=== PATIENT | male | born 1995 | race Two or more races ===

== ENCOUNTER 2020-01-13 09:57 | Emergency (ER) | payer OTHER ==
[~2020-01-13] VITALS: Ht 188 cm; Wt 103.3 kg
--- NOTE | 2020-01-13 10:13 | NUR ---
DR PATEL BS FOR EXAM. PT STATES PAIN STARTED IN RUQ X 3-4 HRS. STARTED ABOUT 3 WEEKS AGO. PAIN MOVES TO DIFFERENT ABD LOCATIONS. THIS AM LUQ; THEN "MOVED TO RT SIDE OF BELLY BUTTON"; CURRENTLY PAIN FREE. DENIES N/V, HX OF KIDNEY STONE. REPORTS SOFT BM'S IN MORNINGS. LAST BM: TODAY. Addendum: 01/13/20 at 1019 by KALYAN "I'VE BEEN BELCHING A LOT" "FEELS BETTER AFTER BURPING"
--- NOTE | 2020-01-13 10:25 | NUR ---
VOIDED SPECIMEN WAS PROVIDED: CLEAR YELLOW. LAB NOW BS.
[2020-01-13 10:40] LABS: BASOPHILS # (AUTO) 0.02 x10^3/uL (0-0.1); BASOPHILS % (AUTO) 0 % (0-1); EOSINOPHILS # (AUTO) 0.02 x10^3/uL (0-0.4); EOSINOPHILS % (AUTO) 0 % (1-7); LYMPHOCYTES # (AUTO) 1.01 x10^3/uL (1-3.4); LYMPHOCYTES % (AUTO) 18 % (22-44); MD NO; MEAN CORPUSCULAR HEMOGLOBIN 31.6 pg (27.5-34.5); MEAN CORPUSCULAR HGB CONC 33.5 g/dL (33.2-36.2); MEAN CORPUSCULAR VOLUME 94.2 fL (81-97); MEAN PLATELET VOLUME 9.3 fL (7.4-10.4); MONOCYTES # (AUTO) 0.39 x10^3/uL (0.2-0.8); MONOCYTES % (AUTO) 7 % (2-9); NEUTROPHILS # (AUTO) 4.16 x10^3/uL (1.8-6.8); NEUTROPHILS % (AUTO) 74 % (42-75); PLATELET COUNT 197 x10^3/uL (130-400); RED BLOOD COUNT 5.27 x10^6/uL (4.38-5.82); RED CELL DISTRIBUTION WIDTH 13.3 % (9.4-14.8)
[2020-01-13 10:49] LABS: ALANINE AMINOTRANSFERASE 25 U/L (12-78); ANION GAP 7 mmol/L (5-15); CALCIUM 9.1 mg/dL (8.5-10.1); CHLORIDE 109 mmol/L (98-107); CREATININE 1.07 mg/dL (0.7-1.3)
[2020-01-13 10:51] LABS: ALKALINE PHOSPHATASE 66 U/L (45-117); BILIRUBIN,TOTAL 0.5 mg/dL (0.2-1.0); TOTAL PROTEIN 8.1 g/dL (6.4-8.2)
[2020-01-13 11:47] LABS: MICROSCOPIC NOT IND
[2020-01-13 11:48] LABS: CULTURE INDICATED? NO
[2020-01-13 12:26] VITALS: BP 107/66
== END 2020-01-13 12:28 | disposition home or self-care (01) ==
LOC: ED 10:41
DX: R19.7 Diarrhea, unspecified (principal); R10.13 Epigastric pain
CPT/HCPCS: 36415; 74176; 80053; 81003; 83690; 85025; 99284

== ENCOUNTER 2020-04-12 20:04 | Emergency (ER) | payer OTHER ==
[~2020-04-12] VITALS: Ht 188 cm; Wt 97.6 kg
[2020-04-12 20:08] VITALS: BP 130/84
[2020-04-12] MEDS ORDERED: CEFDINIR 300 MG CAPSULE ONE (20:42)
[2020-04-12] MEDS ORDERED: MECLIZINE CHEWABLE 25 MG TAB ONE (20:46)
[2020-04-12] MEDS ORDERED: CEFDINIR 300 MG CAPSULE PO ONE (21:00)
[2020-04-12] MEDS ORDERED: MECLIZINE CHEWABLE 25 MG TAB PO ONE (21:00)
== END 2020-04-12 21:02 | disposition home or self-care (01) ==
LOC: ED 20:30
DX: H66.91 Otitis media, unspecified, right ear (principal); R42 Dizziness and giddiness; R51 Headache
CPT/HCPCS: 99283